=== PATIENT | male | born 1960 | race Caucasian/White ===

== ENCOUNTER 2024-05-10 23:26 | Emergency (ER) | payer MEDICARE, OTHER ==
[~2024-05-10] VITALS: Ht 193 cm; Wt 122.5 kg
[2024-05-11 00:23] LABS: BASOPHILS PERCENT AUTO 1 % (0-2); EOSINOPHILS ABSOLUTE AUTO 0.22 K/mm3 (0.00-0.68); EOSINOPHILS PERCENT AUTO 2 % (0-6); Hematocrit 44.8 % (37.0-53.0); Hemoglobin 15.6 g/dL (13.5-17.5); IMMATURE GRAN ABSOLUTE AUTO 0.05 K/mm3 (0.00-0.10); IMMATURE GRAN PERCENT AUTO 0 % (0-1); LYMPHOCYTES ABSOLUTE AUTO 1.55 K/mm3 (0.84-5.20); LYMPHOCYTES PERCENT AUTO 12 % (21-46); MONOCYTES ABSOLUTE AUTO 0.81 K/mm3 (0.16-1.47); MONOCYTES PERCENT AUTO 6 % (4-13); Mean Corpuscular HGB 30.1 pg (26.0-34.0); Mean Corpuscular HGB Conc 34.8 g/dL (31.5-36.5); Mean Corpuscular Volume 86 fL (80-100); Mean Platelet Volume 11.3 fL (9.1-12.4); NEUTROPHILS ABSOLUTE AUTO 10.03 K/mm3 (1.96-9.15); NEUTROPHILS PERCENT AUTO 79 % (41-73); Platelet Count 196 K/mm3 (150-400); RDW Coefficient Variation 13.5 % (11.7-14.2); RDW Standard Deviation 42.4 fL (35.1-46.3); Red Blood Cell Count 5.19 M/mm3 (4.30-5.90); White Blood Cell Count 12.76 K/mm3 (4.00-11.30)
[2024-05-11 00:40] LABS: Albumin, Blood 3.9 g/dL (3.4-5.0); Albumin/Globulin Ratio 1.1 (0.8-1.8); Bilirubin, Total 0.6 mg/dL (0.1-1.0); Bun/Creatinine Ratio 18.6 (12.0-20.0); Creatinine, Blood 1.02 mg/dL (0.60-1.20); Globulin, Blood 3.4 g/dL (2.2-4.0); Potassium, Blood 4.6 mmol/L (3.5-5.5); Total Protein, Blood 7.3 g/dL (6.4-8.2)
[2024-05-11] MEDS ORDERED: HYDROmorphone HCl/Pf 1MG SYR IV ONE ×2 (02:25→04:45)
[2024-05-11] MEDS ORDERED: Ondansetron HCl 2 MG / ML 2ML Vial IV ONE (02:25)
[2024-05-11] MEDS ORDERED: LORazepam 2 MG/ML 1ML Injection IV PRN (02:55)
[2024-05-11] MEDS ORDERED: Glucagon 1 MG/KIT VIAL IV ONE (03:45)
[2024-05-11] MEDS ORDERED: Droperidol 5 mg/2 ml Vial IV ONE (05:05)
[2024-05-11] MEDS ORDERED: Prochlorperazine Edisylate 10 mg Vial IV ONE (05:05)
[2024-05-11] MEDS ORDERED: NS 500 ML IV SCH (05:55)
[2024-05-11] MEDS ORDERED: Nitroglycerin 0.4 MG SUBL SL ONE (07:10)
== END 2024-05-11 11:14 | disposition home or self-care (01) ==
LOC: ER 23:26
PROVIDERS: Emergency Medicine
DX: T18.128A Food in esophagus causing other injury, initial encounter (principal); K22.4 Dyskinesia of esophagus; R91.1 Solitary pulmonary nodule; Z88.5 Allergy status to narcotic agent
CPT/HCPCS: 71045; 80053; 83690; 84484; 85025; 93005; 93010; 96374; 96375; 96376; 99284-25; A9270; J1170; J1610; J1790; J2405

== ENCOUNTER 2024-05-27 22:38 | Emergency (ER) | payer MEDICARE, OTHER ==
[~2024-05-27] VITALS: Ht 193 cm; Wt 120.2 kg
[2024-05-27 23:59] LABS: BASOPHILS ABSOLUTE AUTO 0.07 K/mm3 (0.00-0.23); BASOPHILS PERCENT AUTO 1 % (0-2); EOSINOPHILS ABSOLUTE AUTO 0.21 K/mm3 (0.00-0.68); EOSINOPHILS PERCENT AUTO 2 % (0-6); Hematocrit 43.6 % (37.0-53.0); Hemoglobin 15.1 g/dL (13.5-17.5); IMMATURE GRAN ABSOLUTE AUTO 0.02 K/mm3 (0.00-0.10); IMMATURE GRAN PERCENT AUTO 0 % (0-1); LYMPHOCYTES ABSOLUTE AUTO 1.89 K/mm3 (0.84-5.20); LYMPHOCYTES PERCENT AUTO 20 % (21-46); MONOCYTES ABSOLUTE AUTO 0.82 K/mm3 (0.16-1.47); MONOCYTES PERCENT AUTO 9 % (4-13); Mean Corpuscular HGB 30.1 pg (26.0-34.0); Mean Corpuscular HGB Conc 34.6 g/dL (31.5-36.5); Mean Corpuscular Volume 87 fL (80-100); Mean Platelet Volume 11.8 fL (9.1-12.4); NEUTROPHILS ABSOLUTE AUTO 6.55 K/mm3 (1.96-9.15); NEUTROPHILS PERCENT AUTO 69 % (41-73); Platelet Count 174 K/mm3 (150-400); RDW Coefficient Variation 13.4 % (11.7-14.2); RDW Standard Deviation 42.2 fL (35.1-46.3); Red Blood Cell Count 5.02 M/mm3 (4.30-5.90); White Blood Cell Count 9.56 K/mm3 (4.00-11.30)
[2024-05-28 00:19] LABS: Albumin, Blood 3.5 g/dL (3.4-5.0); Albumin/Globulin Ratio 1.2 (0.8-1.8); Bilirubin, Total 0.3 mg/dL (0.1-1.0); Calcium, Blood 9.4 mg/dL (8.5-10.1); Creatinine, Blood 1.07 mg/dL (0.60-1.20); Magnesium, Blood 1.6 mg/dL (1.6-2.4); Potassium, Blood 4.1 mmol/L (3.5-5.5); Total Protein, Blood 6.5 g/dL (6.4-8.2)
[2024-05-28] MEDS ORDERED: Ketorolac Tromethamine 30mg Vial IV ONE (01:05)
[2024-05-28] MEDS ORDERED: IBU600 MG PO (02:23)
== END 2024-05-28 02:41 | disposition home or self-care (01) ==
LOC: ER 22:38
PROVIDERS: Physician Assistant
DX: R10.11 Right upper quadrant pain (principal); Z88.5 Allergy status to narcotic agent
CPT/HCPCS: 74177; 80053; 83605; 83690; 83735; 85025; 96374; 99284-25; J1885; Q9967

== ENCOUNTER → 2024-09-15 | Outpatient (CLI) | payer OTHER ==
[~2024-09-15] MED LIST: IBU600 MG PO
[2024-09-15 15:18] LABS: BASOPHILS ABSOLUTE AUTO 0.13 K/mm3 (0.00-0.23); BASOPHILS PERCENT AUTO 1 % (0-2); EOSINOPHILS ABSOLUTE AUTO 0.26 K/mm3 (0.00-0.68); EOSINOPHILS PERCENT AUTO 3 % (0-6); Hematocrit 51.3 % (37.0-53.0); Hemoglobin 17.9 g/dL (13.5-17.5); IMMATURE GRAN ABSOLUTE AUTO 0.04 K/mm3 (0.00-0.10); IMMATURE GRAN PERCENT AUTO 0 % (0-1); LYMPHOCYTES ABSOLUTE AUTO 1.96 K/mm3 (0.84-5.20); LYMPHOCYTES PERCENT AUTO 19 % (21-46); MONOCYTES ABSOLUTE AUTO 0.77 K/mm3 (0.16-1.47); MONOCYTES PERCENT AUTO 7 % (4-13); Mean Corpuscular HGB 30.2 pg (26.0-34.0); Mean Corpuscular HGB Conc 34.9 g/dL (31.5-36.5); Mean Corpuscular Volume 87 fL (80-100); Mean Platelet Volume 12.9 fL (9.1-12.4); NEUTROPHILS ABSOLUTE AUTO 7.42 K/mm3 (1.96-9.15); NEUTROPHILS PERCENT AUTO 70 % (41-73); Platelet Count 166 K/mm3 (150-400); RDW Coefficient Variation 14.2 % (11.7-14.2); RDW Standard Deviation 44.4 fL (35.1-46.3); Red Blood Cell Count 5.92 M/mm3 (4.30-5.90); White Blood Cell Count 10.58 K/mm3 (4.00-11.30)
[2024-09-15 15:24] LABS: Alanine Aminotransfer (ALT/SGP 29 U/L (12-78); Albumin, Blood 3.8 g/dL (3.4-5.0); Albumin/Globulin Ratio 1.1 (0.8-1.8); Alk Phos 103 U/L (50-136); Anion Gap 9 mmol/L (3-11); Aspartate Aminotrans (AST/SGOT 15 U/L (12-37); Bilirubin, Direct <0.1 mg/dL (0.0-0.3); Bilirubin, Indirect Unable to Calculate mg/dL (0.1-0.7); Bilirubin, Total 0.4 mg/dL (0.1-1.0); Blood Urea Nitrogen 20 mg/dL (8-24); Bun/Creatinine Ratio 17.5 (12.0-20.0); CHOL/HDL RATIO 9.3; CO2, Blood 25 mmol/L (21-32); Chloride, Blood 106 mmol/L (98-108); Cholesterol 242 mg/dL (50-200); Creatinine, Blood 1.14 mg/dL (0.60-1.20); Globulin, Blood 3.5 g/dL (2.2-4.0); Glomerular Filtration Rate 71 (60-); Glucose, Blood 313 mg/dL (70-99); HDL Cholesterol 26 mg/dL (>39); LDL/HDL RATIO Unable to Calculate; Low Density Lipoprotein Chol Unable to Calculate mg/dL (0-110); Potassium, Blood 4.4 mmol/L (3.5-5.5); Sodium, Blood 136 mmol/L (136-145); Total Protein, Blood 7.3 g/dL (6.4-8.2); Triglycerides 491 mg/dL (30-160); Very Low Density Lipoprot Chol Unable to Calculate mg/dL (6-32)
[2024-09-15 15:38] LABS: LDL Direct Measurement 159 mg/dL (0-130)
== END | disposition home or self-care (01) ==
LOC: LAB 09:00 → LAB SHORT 09:00
PROVIDERS: Nurse Practitioner Family
DX: R10.84 Generalized abdominal pain (principal); E78.49 Other hyperlipidemia
CPT/HCPCS: 80053; 80061; 82248; 83721; 83880; 85025

== ENCOUNTER 2024-12-10 06:43 | Emergency (ER) | payer OTHER ==
[~2024-12-10] VITALS: Ht 193 cm; Wt 118.8 kg
[2024-12-10] MEDS ORDERED: Ketorolac Tromethamine 15mg Vial IV ONE (07:20)
[2024-12-10 07:25] LABS: BASOPHILS ABSOLUTE AUTO 0.08 K/mm3 (0.00-0.23); BASOPHILS PERCENT AUTO 1 % (0-2); EOSINOPHILS ABSOLUTE AUTO 0.24 K/mm3 (0.00-0.68); EOSINOPHILS PERCENT AUTO 2 % (0-6); Hematocrit 45.9 % (37.0-53.0); IMMATURE GRAN ABSOLUTE AUTO 0.07 K/mm3 (0.00-0.10); IMMATURE GRAN PERCENT AUTO 1 % (0-1); LYMPHOCYTES ABSOLUTE AUTO 2.65 K/mm3 (0.84-5.20); LYMPHOCYTES PERCENT AUTO 21 % (21-46); MONOCYTES ABSOLUTE AUTO 0.94 K/mm3 (0.16-1.47); MONOCYTES PERCENT AUTO 7 % (4-13); Mean Corpuscular HGB 30.2 pg (26.0-34.0); Mean Corpuscular HGB Conc 34.9 g/dL (31.5-36.5); Mean Corpuscular Volume 87 fL (80-100); Mean Platelet Volume 11.5 fL (9.1-12.4); NEUTROPHILS ABSOLUTE AUTO 8.96 K/mm3 (1.96-9.15); NEUTROPHILS PERCENT AUTO 69 % (41-73); Platelet Count 157 K/mm3 (150-400); RDW Coefficient Variation 13.8 % (11.7-14.2); Red Blood Cell Count 5.29 M/mm3 (4.30-5.90); White Blood Cell Count 12.94 K/mm3 (4.00-11.30)
[2024-12-10 07:58] LABS: Bun/Creatinine Ratio 16.7 (12.0-20.0); Calcium, Blood 10.1 mg/dL (8.5-10.1); Creatinine, Blood 0.96 mg/dL (0.60-1.20); Potassium, Blood 4.3 mmol/L (3.5-5.5)
== END 2024-12-10 08:28 | disposition home or self-care (01) ==
LOC: ER 06:43
PROVIDERS: Emergency Medicine
DX: E11.65 Type 2 diabetes mellitus with hyperglycemia (principal); M54.31 Sciatica, right side; Z88.5 Allergy status to narcotic agent
CPT/HCPCS: 80048; 82947; 85025; 96374; 99284-25; J1885

== ENCOUNTER → 2024-12-17 | Outpatient (CLI) | payer OTHER | LOC: LAB SHORT 17:53 → LAB 17:53 | DX: L65.9 Nonscarring hair loss, unspecified (principal) | CPT/HCPCS: 84443 ==

== ENCOUNTER 2025-03-19 14:10 | Emergency (ER) | payer OTHER ==
[~2025-03-19] VITALS: Ht 182.9 cm; Wt 97.5 kg
[2025-03-19] MEDS ORDERED: Ketorolac Tromethamine 30mg Vial IV ONE (14:25)
[2025-03-19] MEDS ORDERED: Ondansetron HCl 2 MG / ML 2ML Vial IV ONE (14:25)
[2025-03-19] MEDS ORDERED: HYDROmorphone HCl/Pf 1MG SYR IV ONE (14:25)
[2025-03-19] MEDS ORDERED: Dexamethasone Sod Phos 10 MG/ML 1ML VIAL IV ONE (15:55)
[2025-03-19] MEDS ORDERED: IBUP800 PO (16:13)
[2025-03-19] MEDS ORDERED: METPRE4DP PO (16:13)
[2025-03-19] MEDS ORDERED: HYDROCODONE-AC1 EA10 PO (16:13)
== END 2025-03-19 16:17 | disposition home or self-care (01) ==
LOC: ER 14:10
DX: M54.10 Radiculopathy, site unspecified (principal); E11.9 Type 2 diabetes mellitus without complications; Z88.5 Allergy status to narcotic agent
CPT/HCPCS: 72100; 93926; 96374; 96375; 99284-25; J1100; J1171; J1885; J2405

== ENCOUNTER → 2025-03-23 | Outpatient (CLI) | payer OTHER | LOC: LAB 08:05 → LAB SHORT 08:05 | DX: E11.69 Type 2 diabetes mellitus with other specified complication (principal); E04.9 Nontoxic goiter, unspecified ==

== ENCOUNTER 2025-08-28 03:42 | Emergency (ER) | payer OTHER ==
[~2025-08-28] VITALS: Ht 193 cm; Wt 113.4 kg
[~2025-08-28 03:42] MED LIST changes: +HYDROCODONE-AC1 EA10 PO; +IBUP800 PO; +METPRE4DP PO
[2025-08-28] MEDS ORDERED: OFLOXACIN5 M9 LEFTEAR (04:17)
== END 2025-08-28 04:38 | disposition home or self-care (01) ==
LOC: ER 03:42
DX: H72.92 Unspecified perforation of tympanic membrane, left ear (principal); R51.9 Headache, unspecified; E11.9 Type 2 diabetes mellitus without complications; Z79.899 Other long term (current) drug therapy; Z88.5 Allergy status to narcotic agent
CPT/HCPCS: 99283; A9270

== ENCOUNTER 2025-09-01 17:09 | Emergency (ER) | payer OTHER ==
[~2025-09-01] VITALS: Ht 193 cm; Wt 113.4 kg
[~2025-09-01 17:09] MED LIST changes: +OFLOXACIN5 M9 LEFTEAR
[2025-09-01 18:12] LABS: BASOPHILS ABSOLUTE AUTO 0.10 K/mm3 (0.00-0.23); BASOPHILS PERCENT AUTO 1 % (0-2); EOSINOPHILS ABSOLUTE AUTO 0.14 K/mm3 (0.00-0.68); EOSINOPHILS PERCENT AUTO 1 % (0-6); Hematocrit 50.1 % (37.0-53.0); Hemoglobin 17.3 g/dL (13.5-17.5); IMMATURE GRAN ABSOLUTE AUTO 0.04 K/mm3 (0.00-0.10); IMMATURE GRAN PERCENT AUTO 0 % (0-1); LYMPHOCYTES ABSOLUTE AUTO 1.69 K/mm3 (0.84-5.20); LYMPHOCYTES PERCENT AUTO 16 % (21-46); MONOCYTES ABSOLUTE AUTO 0.75 K/mm3 (0.16-1.47); MONOCYTES PERCENT AUTO 7 % (4-13); Mean Corpuscular HGB Conc 34.5 g/dL (31.5-36.5); Mean Corpuscular Volume 86 fL (80-100); NEUTROPHILS ABSOLUTE AUTO 7.97 K/mm3 (1.96-9.15); NEUTROPHILS PERCENT AUTO 75 % (41-73); NRBC ABSOLUTE 0.00 K/mm3 (0.00-0.02); NRBC Auto 0.0 /100 WBC (0.0-0.2); Platelet Count 204 K/mm3 (150-400); RDW Coefficient Variation 14.6 % (11.7-14.2); RDW Standard Deviation 46.0 fL (35.1-46.3)
[2025-09-01 18:29] LABS: Alanine Aminotransfer (ALT/SGP 19.0 U/L (12-78); Albumin, Blood 4.1 g/dL (3.4-5.0); Albumin/Globulin Ratio 1.1 (0.8-1.8); Anion Gap 8.0 mmol/L (3-11); Aspartate Aminotrans (AST/SGOT 10.0 U/L (12-37); Bilirubin, Total 0.3 mg/dL (0.1-1.0); Blood Urea Nitrogen 16.0 mg/dL (8-24); CO2, Blood 27.0 mmol/L (21-32); Calcium, Blood 10.2 mg/dL (8.5-10.1); Chloride, Blood 105.0 mmol/L (98-108); Creatinine, Blood 0.93 mg/dL (0.60-1.20); Globulin, Blood 3.7 g/dL (2.2-4.0); Glucose, Blood 235.0 mg/dL (70-99); Potassium, Blood 4.2 mmol/L (3.5-5.5); Sodium, Blood 136.0 mmol/L (136-145); Total Protein, Blood 7.8 g/dL (6.4-8.2)
[2025-09-01 20:25] LABS: Source, Urine Clean Catch
[2025-09-01 20:32] LABS: Bilirubin, Urine Neg (Neg); Color, Urine Yellow (P-Yellow); Glucose Qualitative, Urine 4+ (Neg); Ketones, Urine Neg (Neg); Leukocyte Esterase, Urine 2+ (Neg); Protein, Urine 2+ (Neg); Specific Gravity, Urine 1.010 (1.003-1.022); Urobilinogen, Urine NORM (Normal)
[2025-09-01 20:40] LABS: Red Blood Cells, Urine 0-2 /hpf (0-2)
== END 2025-09-01 19:58 | disposition left against medical advice (07) ==
LOC: ER 17:09
PROVIDERS: Physician Assistant
DX: R34 Anuria and oliguria (principal); Z53.21 Procedure and treatment not carried out due to patient leaving prior to being seen by health care provider
CPT/HCPCS: 74177; 80053; 81001; 85025; 87077; 87086; 87186; 99282-25; Q9967